=== PATIENT | male | born 1945 ===

== ENCOUNTER 2018-11-24 12:23 | Outpatient (CLI) | payer OTHER | END 2018-11-24 12:31 | disposition home or self-care (01) | LOC: RAD 12:23 | DX: S93.491A Sprain of other ligament of right ankle, initial encounter (principal) ==

== ENCOUNTER 2021-01-18 09:05 | Outpatient (CLI) | payer OTHER | END 2021-01-18 09:14 | disposition home or self-care (01) | LOC: SONOGRAMA 09:05 | PROVIDERS: ATTEND Internal Medicine | DX: M79.81 Nontraumatic hematoma of soft tissue (principal); R10.30 Lower abdominal pain, unspecified ==